=== PATIENT | female | born 1925 | race Caucasian/White ===

== ENCOUNTER 2016-09-15 08:33 | Outpatient (CLI) | payer MEDICARE, OTHER ==
[2016-07-27 12:18] VITALS: O2SAT 89
== END 2016-09-15 08:34 | disposition home or self-care (01) | DRG 561 ==
LOC: CONVCARE 08:33
PROVIDERS: ATTEND Orthopaedic Surgery
DX: S82.202D Unspecified fracture of shaft of left tibia, subsequent encounter for closed fracture with routine healing (principal); S82.402D Unspecified fracture of shaft of left fibula, subsequent encounter for closed fracture with routine healing
CPT/HCPCS: 73590